=== PATIENT | male | born 1990 | race American Indian/Alaskan Native ===

== ENCOUNTER 2019-11-19 02:51 | Emergency (ER) | payer SELFPAY ==
[2019-11-19 02:59] VITALS: BP 138/73
--- NOTE | 2019-11-19 07:58 | Emergency Department Report ---
ED Lower Extremity HPI - General Chief Complaint: Extremity Injury, Lower Stated Complaint: TOE PAIN Time Seen by Provider: 11/19/19 07:36 Source: patient Mode of arrival: Ambulatory Limitations: No Limitations - History of Present Illness Initial Comments: 29-year-old male presents to the ER today complaining of pain to his left great toe. Patient does not recall any injury to his toe, but he states that he went swimming Father's Day at the pool at his sister's house. He states that he was walking around barefoot. He states a couple days later he noticed that his left great toe started to become painful, and since then it has gradually got worse, with increasing swelling and redness. He denies any spreading redness from the toe up into his foot or leg. He denies any fever or chills. He reports no other symptoms at this time. Complaint: other (Left great toe pain and swelling) -: Gradual, week(s) (1) - Related Data Previous Rx's Medication Instructions Recorded Last Taken Type Acetaminophen/Codeine [Tylenol 1 tab PO Q4HR PRN #12 tablet 11/19/19 Unknown Rx /Codeine # 3 tab] Clindamycin [Clindamycin CAP] 300 mg PO Q6H #40 capsule 11/19/19 Unknown Rx Allergies Allergy/AdvReac Type Severity Reaction Status Date / Time No Known Allergies Allergy Verified 11/19/19 02:56 ED Review of Systems ROS: Stated complaint: TOE PAIN Other details as noted in HPI Constitutional: denies: chills, fever Musculoskeletal: joint swelling, arthralgia Skin: other (+left great toe redeness) Neurological: denies: numbness, paresthesias ED Past Medical Hx - Past Medical History Previous Medical History?: No - Surgical History Past Surgical History?: No - Social History Smoking Status: Current Every Day Smoker Substance Use Type: Alcohol - Medications Home Medications: Home Medications Medication Instructions Recorded Confirmed Last Taken Type Acetaminophen/Codeine [Tylenol 1 tab PO Q4HR PRN #12 tablet 11/19/19 Unknown Rx /Codeine # 3 tab] Clindamycin [Clindamycin CAP] 300 mg PO Q6H #40 capsule 11/19/19 Unknown Rx ED Physical Exam - General Limitations: No Limitations General appearance: alert, in no apparent distress - Respiratory Respiratory exam: Present: normal lung sounds bilaterally. Absent: respiratory distress - Cardiovascular Cardiovascular Exam: Present: regular rate, normal rhythm. Absent: systolic murmur, diastolic murmur, rubs, gallop - Extremities Exam Extremities exam: Present: other (There is moderate swelling noted to distal left great toe; There is sever point tenderness to distal volar aspect left great toe; there is thickened dry skin to that same area with fluctuance and induration; there is moderate erythema to the posterior nail bed and medial aspect of distal toe but no streaking redness. The skin to entire plantar left foot appears dry and flaky which patient states is chronic) - Neurological Exam Neurological exam: Present: alert, oriented X3 - Psychiatric Psychiatric exam: Present: normal affect, normal mood ED Course Vital Signs 11/19/19 02:55 Temperature 98.6 F Pulse Rate 91 H Respiratory 18 Rate Blood Pressure 138/73 O2 Sat by Pulse 99 Oximetry - I & D Left Lower Distal Volar Toe Site: volar/distal Blade Size: 11 I & D Procedure: betadine prep Progress: Less than 1cc pus drained. Wound irrigated with 10 cc ns. no packing. dressing applied. patient tolerated procedure well. No complications. Critical care attestation.: If time is entered above; I have spent that time in minutes in the direct care of this critically ill patient, excluding procedure time. ED Disposition Clinical Impression: Toe abscess, Cellulitis of toe Disposition: DC-01 TO HOME OR SELFCARE Is pt being admited?: No Does the pt Need Aspirin: No Condition: Stable Instructions: Cellulitis (ED), Abscess (ED) Additional Instructions: Keep wound clean with soap and water; dry well after cleaning then cover with dressing. Keep foot clean at all times. Return in 2-3 days for wound check. REturn sooner if getting worse. Prescriptions: Clindamycin [Clindamycin CAP] 300 mg PO Q6H #40 capsule Acetaminophen/Codeine [Tylenol /Codeine # 3 tab] 1 tab PO Q4HR PRN #12 tablet PRN Reason: Pain Referrals: MAINOR COOPER MD [Staff Physician] - 3-5 Days Forms: Work/School Release Form(ED) Time of Disposition: 09:59
--- NOTE | 2019-11-19 08:31 | XRay Report ---
LEFT TOES 3 VIEWS INDICATION: Left great toe pain/rule out fb. COMPARISON: None. IMPRESSION: No acute osseous or soft tissue abnormality. No significant DJD. Signer Name: Wilfrido Arteaga Jr, MD Signed: 11/19/2019 8:26 AM Workstation Name: [id number]
[2019-11-19] MEDS ORDERED: LIDOCAINE (1%) 10 MG/1 ML VIAL 20 ML MDV INFILTRATI ONE (09:07)
== END 2019-11-19 10:12 | disposition home or self-care (01) ==
LOC: ED 02:51
DX: L02.612 Cutaneous abscess of left foot (principal); L03.032 Cellulitis of left toe; F17.200 Nicotine dependence, unspecified, uncomplicated; Z79.899 Other long term (current) drug therapy
CPT/HCPCS: 99283